=== PATIENT | male | born 2000 | race Caucasian/White ===

== ENCOUNTER 2025-06-11 10:35 | Emergency (ER) | payer BC ==
[2025-06-11] MEDS ORDERED: SODIUM CHLORIDE 0.9% 500 ML IV ONE (11:05)
[2025-06-11] MEDS ORDERED: Ondansetron Hydrochloride 4 MG/2 ML VIAL IV ONE (11:05)
[2025-06-11 11:52] LABS: BASO # 0.0 10*3/uL (0.0-0.1); BASO % 0.4 % (0.0-1.0); EOS # 0.1 10*3/uL (0.0-0.4); EOS % 1.3 % (1.0-4.0); MEAN CELL VOLUME 89.3 fl (80.0-94.0); MEAN CORPUSCULAR HGB 28.3 pg (27.0-31.0); MEAN PLATELET VOLUME 9.7 fl (9.6-12.3); MONO # 0.7 10*3/uL (0.1-1.0); MONO % 9.5 % (3.0-9.0); NEUT # 4.3 10*3/uL (2.3-7.9); NEUT % 61.2 % (47.0-73.0); NUCLEATED RED BLOOD CELL 0.0 % (0.0-0.0); NUCLEATED RED BLOOD CELL 0.0 10*3/uL (0.0-0.0); PLATELET COUNT AUTOMATED 226 10*3/uL (130-400); RED CELL DISTRI WIDTH 12.9 % (0-14.5)
[2025-06-11 12:36] LABS: BUN 12 mg/dl (9-23); SGPT/ALT 120 U/L (5-49)
[2025-06-11] MEDS ORDERED: Ondansetron4 MG PO (13:11)
[2025-06-11] MEDS ORDERED: PERCOCET 5-3251 EACH PO (13:11)
== END 2025-06-11 13:36 | disposition home or self-care (01) ==
LOC: ED 10:35
PROVIDERS: Emergency Medicine
DX: K80.50 Calculus of bile duct without cholangitis or cholecystitis without obstruction (principal); K76.0 Fatty (change of) liver, not elsewhere classified